=== PATIENT | female | born 1975 | race Caucasian/White ===

== ENCOUNTER 2016-07-23 20:36 | Inpatient (IN) | payer OTHER ==
[~2016-07-23] VITALS: Ht 162.6 cm; Wt 78.4 kg
[~2016-07-23 20:36] MED LIST: CEPH500T PO; HYDR50; IBUP800 PO; LEXA20TA OR; PREN0.01 PO; RANI150 PO
[2016-07-23 20:39] VITALS: BP 131/80; PULSE 72; RESP 16; TEMP 97.6; O2SAT 97
--- NOTE | 2016-07-23 21:17 | PD ---
HPI . Suicidal ideation Chief Complaint: Psychiatric Symptoms Time Seen by Provider: 20:57 Travel History International Travel<30 days: No Contact w/Intl Traveler<30days: No Traveled to known affect area: No History of Present Illness HPI Patient is brought us voluntarily by her with a chief complaint of suicidal ideation. She reports she onset of suicidal ideation about a week ago. She states that it is getting progressively worse. Today, she wrote letters to family members areas she has developed a plan in that she would take some pills, drinks some alcohol and then slash her wrist. She reports previous suicidal ideation with no real plan. She states that her current episode is much worse. She has a history of bipolar disorder. She reports she has been compliant with her medications. [facility] Past Medical History Bipolar Disorder: Yes (WITH RAPID CYCLING) Anxiety: Yes Depression: Yes Gestational Age in Weeks: 16 Migraines: Yes ?: Not LMP: 07/15/16 : 3 Para: 3 Tubal Ligation: Yes (2012) Past Surgical History Eye Surgery: Yes ( A CHILD) Social History Alcohol Use: Yes Tobacco Use: No Substance Use: Yes (MARIJUANA) Allergies-Medications (Allergen,Severity, Reaction): Coded Allergies: Shellfish (Verified Allergy, Severe, 07/23/16) Reported Meds & Prescriptions Reported Meds & Active Scripts Active Reported Latuda (Lurasidone) 80 Mg Tab 80 Mg PO DAILY Klonopin (Clonazepam) 0.5 Mg Tab 0.5 Mg PO BID Inderal LA 24 HR (Propranolol HCl) 60 Mg Cap 20 Mg PO DAILY Topamax (Topiramate) 25 Mg Tab 325 Mg PO BID Lamictal (Lamotrigine) 150 Mg Tab 150 Mg PO BID Effexor XR 24 HR (Venlafaxine HCl) 75 Mg Cap 75 Mg PO DAILY Review of Systems Except as stated in HPI: all other systems reviewed are Neg General / Constitutional: No: Fever, Chills Psychiatric: Positive: Depression, Suicidal Ideations, Mood Disorder Physical Exam Narrative GENERAL: Patient appears sad. Poor eye contact. Hair does not appear to have been washed recent past. SKIN: Warm and dry. HEAD: Atraumatic. Normocephalic. EYES: Pupils equal and round. ENT: No nasal bleeding or discharge. Mucous membranes pink and moist. NECK: Trachea midline. CARDIOVASCULAR: Regular rate and rhythm. RESPIRATORY: No accessory muscle use. MUSCULOSKELETAL: No obvious deformities. No edema. NEUROLOGICAL: Awake and alert. No obvious cranial nerve deficits. Motor grossly within normal limits. Normal speech. PSYCHIATRIC: Sad. Suicidal ideation. Hopeless. Data Data Last Documented VS Vital Signs Date Time Temp Pulse Resp B/P Pulse Ox O2 Delivery O2 Flow Rate FiO2 07/23/16 20:39 97.6 72 16 131/80 97 Room Air Orders Complete Blood Count With Diff (07/23/16 20:58) Comprehensive Metabolic Panel (07/23/16 20:58) Psych Screen (07/23/16 20:58) Drug Screen, Random Urine (07/23/16 20:58) Labs Laboratory Tests Test 07/23/16 21:20 White Blood Count 8.1 TH/MM3 Red Blood Count 4.55 MIL/MM3 Hemoglobin 13.6 GM/DL Hematocrit 40.8 % Mean Corpuscular Volume 89.6 FL Mean Corpuscular Hemoglobin 29.9 PG Mean Corpuscular Hemoglobin 33.4 % Concent Red Cell Distribution Width 13.5 % Platelet Count 290 TH/MM3 Mean Platelet Volume 10.0 FL Neutrophils (%) (Auto) 61.5 % Lymphocytes (%) (Auto) 29.6 % Monocytes (%) (Auto) 4.2 % Eosinophils (%) (Auto) 3.8 % Basophils (%) (Auto) 0.9 % Neutrophils # (Auto) 5.0 TH/MM3 Lymphocytes # (Auto) 2.4 TH/MM3 Monocytes # (Auto) 0.3 TH/MM3 Eosinophils # (Auto) 0.3 TH/MM3 Basophils # (Auto) 0.1 TH/MM3 CBC Comment DIFF FINAL Differential Comment Sodium Level 138 MEQ/L Potassium Level 3.4 MEQ/L Chloride Level 106 MEQ/L Carbon Dioxide Level 23.7 MEQ/L Anion Gap 8 MEQ/L Blood Urea Nitrogen 6 MG/DL Creatinine 1.13 MG/DL Estimat Glomerular Filtration 54 ML/MIN Rate Random Glucose 82 MG/DL Calcium Level 8.8 MG/DL Total Bilirubin 0.3 MG/DL Aspartate Amino Transf 10 U/L (AST/SGOT) Alanine Aminotransferase 16 U/L (ALT/SGPT) Alkaline Phosphatase 76 U/L Total Protein 7.2 GM/DL Albumin 3.7 GM/DL Urine Opiates Screen NEG Urine Barbiturates Screen NEG Urine Amphetamines Screen NEG Urine Benzodiazepines Screen NEG Urine Cocaine Screen NEG Urine Cannabinoids Screen POS MDM Medical Decision Making Medical Screen Exam Complete: Yes Emergency Medical Condition: Yes Differential Diagnosis Differential diagnosis includes but is not limited to depression with suicidal gesture, suicide attempt, suicidal ideation, attention seeking behavior. Narrative Course Patient brought in by her for suicidal ideation. She presented voluntarily. I will take out a Gil Act. CBC & BMP Diagram 07/23/16 21:20 Tox screen is positive for marijuana. Diagnosis Primary Impression: Suicidal ideation Condition: Stable Yvonne Lima MD Jul 23, 2016 21:17
[2016-07-23] MEDS ORDERED: VENL75XR PO (21:26)
[2016-07-23] MEDS ORDERED: LURA80 PO (21:26)
[2016-07-23] MEDS ORDERED: PROP60 PO (21:26)
[2016-07-23] MEDS ORDERED: TOPA25TA8 PO (21:26)
[2016-07-23] MEDS ORDERED: LAMO150 PO (21:26)
[2016-07-23] MEDS ORDERED: CLON.5 PO (21:26)
[2016-07-23 21:33] LABS: BASOPHIL # 0.1 TH/MM3 (0-0.2); BASOPHIL % 0.9 % (0.0-2.0); EOSINOPHIL # 0.3 TH/MM3 (0-0.4); EOSINOPHIL % 3.8 % (0.0-4.0); HEMATOCRIT 40.8 % (35.0-46.0); HEMO FLAGS DIFF FINAL; LYMPH % 29.6 % (9.0-44.0); LYMPHOCYTE # 2.4 TH/MM3 (1.0-4.8); MEAN CELL VOLUME 89.6 FL (80.0-100.0); MEAN CORPUSCULAR HEMOGLOBIN 29.9 PG (27.0-34.0); MEAN CORPUSCULAR HGB CONC 33.4 % (32.0-36.0); MONO % 4.2 % (0.0-8.0); NEUT % 61.5 % (16.0-70.0); PLATELET COUNT 290 TH/MM3 (150-450); RED BLOOD COUNT 4.55 MIL/MM3 (4.00-5.30); RED CELL DISTRIBUTION WIDTH 13.5 % (11.6-17.2); WHITE BLOOD COUNT 8.1 TH/MM3 (4.0-11.0)
[2016-07-23 21:44] LABS: AMPHETAMINE, URINE NEG (NEG); BARBITURATES, URINE NEG (NEG); COCAINE, URINE NEG (NEG)
[2016-07-23 22:01] LABS: ANION GAP 8 MEQ/L (5-15); AST (GOT) 10 U/L (15-37); BICARBONATE 23.7 MEQ/L (21.0-32.0); BLOOD UREA NITROGEN 6 MG/DL (7-18); CHLORIDE 106 MEQ/L (98-107); GLOMERULAR FILTRATION RATE 54 ML/MIN (>89); POTASSIUM 3.4 MEQ/L (3.5-5.1); SODIUM (NA) 138 MEQ/L (136-145)
[2016-07-23 22:03] LABS: ALKALINE PHOSPHATASE 76 U/L (45-117); ALT (GPT) 16 U/L (10-53); TOTAL BILIRUBIN ADULT 0.3 MG/DL (0.2-1.0)
[2016-07-23 23:38] VITALS: BP 114/58; PULSE 69; RESP 20; O2SAT 99
[2016-07-24] MEDS ORDERED: ALUMINUM/MAGNESIUM/SIMETH 30 ML CUP PO PRN (00:45)
[2016-07-24] MEDS ORDERED: MAGNESIUM HYDROXIDE SUSP 30 ML CUP PO PRN (00:45)
[2016-07-24] MEDS ORDERED: ACETAMINOPHEN 325 MG TAB PO PRN (00:45)
[2016-07-24 01:13] VITALS: BP 121/73; PULSE 73; RESP 19; TEMP 98.7; O2SAT 99
[2016-07-24] MEDS: VENLAFAXINE HCL XR 75 MG CAP PO SCH (08:16)
[2016-07-24] MEDS: LURASIDONE 80 MG TAB PO SCH (08:16)
[2016-07-24] MEDS: lamoTRIgine 100 MG TAB PO SCH ×2 (08:17→21:24)
[2016-07-24] MEDS: clonazePAM 0.5 MG TAB PO SCH ×2 (08:17→21:00)
[2016-07-24] MEDS: NICOTINE 21 MG/24 HR PATCH T-DERMAL SCH (08:18)
[2016-07-24] MEDS ORDERED: TOPIRAMATE 200 MG TAB PO SCH (09:00)
[2016-07-24] MEDS: PROPRANOLOL HCL 20 MG TAB PO SCH (09:00)
[2016-07-24] MEDS: TOPIRAMATE 25 MG TAB PO SCH ×2 (09:00→21:00)
[2016-07-24] MEDS ORDERED: TOPIRAMATE 100 MG TAB PO SCH (11:00)
[2016-07-24 15:35] VITALS: BP 126/78; PULSE 73; RESP 18; TEMP 96.9; O2SAT 95
--- NOTE | 2016-07-24 16:01 | HHI.HP ---
Provisional Diagnosis Admission Date Jul 24, 2016 at 00:32 [place] I. Major depressive disorder, recurrent, severe, without psychosis, history of bipolar 2 disorder, [place] II. Deferred [place] III. No medical problems [place] IV. Several family stressors [place] V. 35 Certification of Person's Competence To Provide Express and Informed Consent I have personally examined Marya Stafford , a person being served at [facility] on, Jul 24, 2016 15:46. Express and informed consent means consent voluntarily given in writing, by a competent person, after sufficient explanation and disclosure of the subject matter involved to enable the person to make a knowing and willful decision without any element of force, fraud, deceit, duress, or other form of constraint or coercion. This person is 18 years of age or older, is not now known to be incompetent to consent to treatment with a guardian advocate, and does not have a health care surrogate or proxy currently making medical treatment decisions. I have found this person to be one of the following: [] Competent to provide express and informed consent, as defined above, for voluntary admission to this facility and is competent to provide express and informed consent for treatment. He/she has the consistent capacity to make well reasoned, willful, and knowing decisions concerning his or her medical or mental health treatment. The person fully and consistently understands the purpose of the admission for examination/placement and is fully capable of personally exercising all rights assured [place] [] Incompetent to provide express and informed consent to voluntary admission, and this is incompetent to provide express and informed consent to treatment. The person must be transferred to involuntary status and a petition for a guardian advocate filed with the Circuit Court. [X] Refusing to provide express and informed consent to voluntary admission but is competent to provide express and informed consent for treatment. The person must be discharged or transferred to involuntary status. Form shall be completed within 24 hours of a person's arrival at the receiving facility and filed in the clinical record of each person: 1. Admitted on a voluntary basis 2. Permitted to provide express and informed consent to his/her own treatment 3. Allowed to transfer from involuntary to voluntary status 4. Prior to permitting a person to consent to his or her own treatment after having been previously found incompetent to consent to treatment. History of Present Illness Capacity: Has Capacity HPI The patient is a 40-year-old woman, domicile with her and 3 kids in [place], unemployed, with psychiatric history of depression, bipolar disorder 2, for previous psychiatric hospitalizations, last hospitalization was 3 years ago, outpatient psychiatric care with Dr. Garcia in [place], she is on Effexor 75 mg, not to the 80 mg, Lamictal 150 mg twice a day, clonazepam 0.5 mg twice a day, Topamax 25 mg twice a day, no previous suicidal attempts, no significant medical history, who was brought by her with a chief complaint of suicidal ideation. She reports she onset of suicidal ideation about a week ago. She states that it is getting progressively worse. Today, she wrote letters to family members areas she has developed a plan in that she would take some pills, drinks some alcohol and then slash her wrist. Patient stated that her life is a mess, she says that she cannot sit the future, she cannot see clear what she is going to do with her life. She says that her medications for depression are extremely expensive, she doesn't have a job, also her kids needs medication further medical illnesses, one of them has a heart condition another have ADHD and her insurance doesn't cover their medications. She has thought that it she kills herself at least her can use the money of her medications to bay the kids medication. Patient reports about 1 year of depressive symptoms, but at least 2 weeks of decreased energy, no appetite, weight loss, low self esteem, generalized pessimism, anhedonia, hopelessness, helplessness, worthlessness, and constant suicidal ideation without any specific plan. Patient also says that she has a chronic sense of emptiness inside her that has augmented in the last week and she cannot control. She denies homicidal ideation, she denies visual and auditory hallucinations. Patient is fully oriented 3, no attention deficit, no gross cognitive impairment observed. Patient reports the use of marijuana 2 or 3 times per week, denies the use of other illicit drugs and alcohol. Review of Systems Constitutional: DENIES: Diaphoretic episodes, Fatigue, Fever, Weight gain, Weight loss, Chills, Dizziness, Change in appetite, Night Sweats Endocrine: DENIES: Abnorml menstrual pattern, Heat/cold intolerance, Polydipsia , Polyuria, Polyphagia Eyes: DENIES: Blurred vision, Diplopia, Eye inflammation, Eye pain, Vision loss , Photosensitivity, Double Vision Ears, nose, mouth, throat: DENIES: Tinnitus, Hearing loss, Vertigo, Nasal discharge, Oral lesions, Throat pain, Hoarseness, Ear Pain, Running Nose, Epistaxis, Sinus Pain, Toothache, Odynophagia Cardiovascular: DENIES: Chest pain, Palpitations, Syncope, Dyspnea on Exertion , PND, Lower Extremity Edema, Orthopnea, Claudication Gastrointestinal: DENIES: Abdominal pain, Black stools, Bloody stools, Constipation, Diarrhea, Nausea, Vomiting, Difficulty Swallowing, Anorexia Musculoskeletal: DENIES: Joint pain, Muscle aches, Stiffness, Joint Swelling, Back pain, Neck pain Integumentary: DENIES: Abnormal pigmentation, Pruritus, Rash, Nail changes, Breast masses, Breast skin changes, Nipple discharge Immunologic/allergic: DENIES: Eczema, Urticaria Neurologic: DENIES: Abnormal gait, Headache, Localized weakness, Paresthesias, Seizures, Speech Problems, Tremor, Poor Balance Psychiatric: DENIES: Anxiety, Confusion, Mood changes, Depression, Hallucinations, Agitation, Suicidal Ideation, Homicidal Ideation, Delusions Past Psych History Violence risk - self (6 mos) Increased Substance Abuse History Drugs/Alcohol past 12 months Marijuana 2 or 3 times per week Past Family Social History Coded Allergies: Shellfish (Verified Allergy, Severe, 07/23/16) Codeine (Verified Adverse Reaction, Severe, Psychosis, 07/24/16) Reported Medications Lurasidone (Latuda)80 Mg Tab80 Mg PO DAILY #30 TAB Ref 0 07/23/16 Clonazepam (Klonopin)0.5 Mg Tab0.5 Mg PO BID #60 TAB Ref 0 07/23/16 Propranolol ER 24 HR (Inderal LA 24 HR)60 Mg Cap20 Mg PO DAILY #30 CAP Ref 0 07/23/16 Topiramate (Topamax)25 Mg [id number] Mg PO BID #60 TAB Ref 0 07/23/16 Lamotrigine (Lamictal)150 Mg [id number] Mg PO BID #60 TAB Ref 0 07/23/16 Venlafaxine ER 24 HR (Effexor XR 24 HR)75 Mg Cap75 Mg PO DAILY #30 CAP Ref 0 07/23/16 Current Medications Medications (Trade) Dose Ordered Sig/Marek Route Start Time Stop Time Status Last Admin (Tylenol) 650 mg Q4H PRN PO 07/24/16 00:45 (Milk Of Magnesia Liq) 30 ml DAILY PRN PO 07/24/16 00:45 (Mag-Al Plus Susp Liq) 30 ml Q6H PRN PO 07/24/16 00:45 (Habitrol 21 Mg Patch.24 Hr) 1 patch DAILY T-DERMAL 07/24/16 09:00 Miscellaneous Information 1 HS T-DERMAL 07/24/16 21:00 (Effexor Xr) 75 mg DAILY PO 07/24/16 09:00 07/24/16 08:16 (LaMICtal) 150 mg BID PO 07/24/16 09:00 07/24/16 08:17 (Topamax) 25 mg BID PO 07/24/16 09:00 07/24/16 09:00 (Inderal) 20 mg DAILY PO 07/24/16 09:00 07/24/16 09:00 (KlonoPIN) 0.5 mg BID PO 07/24/16 09:00 07/24/16 08:17 (Latuda) 80 mg DAILY PO 07/24/16 09:00 (Topamax) 300 mg BID PO 07/24/16 21:00 Family History She denies Social History Patient was born and raised in [place], she has been living in [place] with her , she has 3 kids, 14, 6, 6 years old, she is unemployed, her highest level of education is some college Physical Exam No withdrawal, no EPS, no tremors, no psychomotor retardation or agitation present Vital Signs Vital Signs Date Time Temp Pulse Resp B/P Pulse Ox O2 Delivery O2 Flow Rate FiO2 07/24/16 15:35 96.9 73 18 126/78 95 07/23/16 23:38 Room Air Lab Results Toxicology is positive for cannabis Mental Status Examination Appearance Overweight woman, [facility], age appearing, good hygiene, superficially cooperative, irritable, distant Speech: Unremarkable Orientation: x3 Memory: Unremarkable Thought Process: Logical Thought Content: Unremarkable Hallucination Type: None Suicidal Ideation: Yes Previous Suicide Attempts: No Homicidal Ideation: No Insight: Fair Judgment: Poor Affect: Irritable Mood: Sad Motor Activity: Normal gait Assessment & Plan Problem List: (1) Major depressive disorder, recurrent Assessment & Plan: The patient is a 40-year-old woman with psychiatric history of depression, bipolar disorder 2, for previous psychiatric hospitalizations, last hospitalization was 3 years ago, outpatient psychiatric care with Dr. Garcia in [place], she is on Effexor 75 mg, not to the 80 mg, Lamictal 150 mg twice a day, clonazepam 0.5 mg twice a day, Topamax 25 mg twice a day, no previous suicidal attempts, no significant medical history, who was brought by her with a chief complaint of suicidal ideation. On psychiatric evaluation patient reports about 1 year of depressive symptoms, but at least 2 weeks of decreased energy, no appetite, weight loss, low self esteem , generalized pessimism, anhedonia, hopelessness, helplessness, worthlessness, and constant suicidal ideation without any specific plan. Patient also says that she has a chronic sense of emptiness inside her that has augmented in the last week and she cannot control. At this moment patient represents an acute danger to herself and is psychiatric admission for stabilization and safety. Present symptomatology seems to be related with depression secondary to multiple family and social stressors, but a personality component needs to be closely monitored. Will restart outpatient psychotropics. pipe out worker intervention for psychosocial assessment, counseling, psychotherapy. Patient will participate in individual and group therapy. Collateral information is pending. Extensive support, motivation psychoeducation provided. Will consult psychiatry for second opinion. ICD Code: F33.9 Assessment & Plan Estimated LOS: Javed Monahan MD Jul 24, 2016 16:00
[2016-07-24] MEDS: REMOVE OLD NICOTINE PATCH T-DERMAL SCH (21:00)
[2016-07-24] MEDS: TOPIRAMATE 100 MG TAB PO SCH (21:00)
[2016-07-25 05:30] VITALS: BP 102/60; PULSE 90; RESP 18; TEMP 97; O2SAT 97
[2016-07-25 06:59] LABS: ANION GAP 6 MEQ/L (5-15); BICARBONATE 26.3 MEQ/L (21.0-32.0); BLOOD UREA NITROGEN 9 MG/DL (7-18); CHLORIDE 107 MEQ/L (98-107); GLOMERULAR FILTRATION RATE 55 ML/MIN (>89); HDL CHOLESTEROL 53.8 MG/DL (40.0-60.0); LDL CHOLESTEROL 169 MG/DL (0-99); POTASSIUM 3.6 MEQ/L (3.5-5.1); SODIUM (NA) 139 MEQ/L (136-145)
[2016-07-25] MEDS: clonazePAM 0.5 MG TAB PO SCH ×2 (08:41→21:10)
[2016-07-25] MEDS: LURASIDONE 80 MG TAB PO SCH (08:41)
[2016-07-25] MEDS: lamoTRIgine 100 MG TAB PO SCH ×2 (08:41→21:10)
[2016-07-25] MEDS: TOPIRAMATE 100 MG TAB PO SCH (08:41)
[2016-07-25] MEDS: TOPIRAMATE 25 MG TAB PO SCH ×2 (08:42→21:11)
[2016-07-25] MEDS: PROPRANOLOL HCL 20 MG TAB PO SCH ×2 (08:42→21:11)
[2016-07-25] MEDS: NICOTINE 21 MG/24 HR PATCH T-DERMAL SCH (08:43)
[2016-07-25] MEDS: VENLAFAXINE HCL XR 75 MG CAP PO SCH (08:43)
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
[2016-07-25 16:34] LABS: HEMOGLOBIN A1b 1.5 %; HEMOGLOBIN Ao 87.1 %; HEMOGLOBIN LA1C 1.6 %; HEMOGLOBIN P3 3.1 %
[2016-07-25 20:00] VITALS: BP 98/58; PULSE 66; RESP 17; O2SAT 96
[2016-07-25] MEDS: REMOVE OLD NICOTINE PATCH T-DERMAL SCH (21:00)
[2016-07-26 06:22] VITALS: BP 103/48; PULSE 64; RESP 18; TEMP 98; O2SAT 95
[2016-07-26] MEDS ORDERED: TOPIRAMATE 25 MG TAB PO SCH (09:00)
[2016-07-26] MEDS ORDERED: LURASIDONE 40 MG TAB PO SCH (09:00)
[2016-07-26] MEDS: NICOTINE 21 MG/24 HR PATCH T-DERMAL SCH (09:00)
[2016-07-26] MEDS: LURASIDONE 80 MG TAB PO SCH (09:05)
[2016-07-26] MEDS: PROPRANOLOL HCL 20 MG TAB PO SCH ×3 (09:07→21:24)
[2016-07-26] MEDS: clonazePAM 0.5 MG TAB PO SCH ×2 (09:07→21:23)
[2016-07-26] MEDS: VENLAFAXINE HCL XR 75 MG CAP PO SCH ×2 (09:07→21:23)
[2016-07-26] MEDS: lamoTRIgine 100 MG TAB PO SCH ×2 (09:08→21:23)
--- NOTE | 2016-07-26 10:33 | HHI.PYPN ---
Subjective Remarks Patient remains markedly depressed with suicidal ideation. She continues to feel overwhelmed by her responsibilities with her 3 children. She feels inadequate and states she is not working or being productive. This physician went over her medications and noted her Effexor dose is subtherapeutic for most people. Review of Systems ROS Limitations: Clinical Condition Objective Alert: Yes [place]: Person, Place, Date, Situation Mood: Depressed Affect: Restricted Memory Intact: Immediate, Recent, Remote Hallucinations: Other Delusions: No Delusion Type: Other Suicidal: Ideation Homicidal: Ideation Insight/Judgment Impaired Vitals/IOs Vital Signs Date Time Temp Pulse Resp B/P Pulse Ox O2 Delivery O2 Flow Rate FiO2 07/26/16 06:22 98.0 64 18 103/48 95 07/23/16 23:38 Room Air Assessment & Plan Problem List: (1) Severe depressed bipolar II disorder without psychotic features ICD Code: F31.81 (2) Use of cannabis ICD Code: F12.90 Assessment & Plan Estimated LOS: 4 days this physician increased the dose of Effexor from 75 mg to 150 mg per day. The dose of Latuda was dropped back to 80 mg per day. The dose of Topamax was dropped back to 50 mg per day. The Topamax medication may be discontinued over time as this physician does not find it helpful for the patient's medicines. Justification for Cont. Inpt. Suicidal and unable to care for herself. Request HC Surrog/Guard Advoc?: No Aurelio Garay MD Jul 26, 2016 10:33
[2016-07-26 19:00] VITALS: BP 89/58; PULSE 73; RESP 18; TEMP 97.6; O2SAT 95
[2016-07-26] MEDS: REMOVE OLD NICOTINE PATCH T-DERMAL SCH (21:00)
[2016-07-26] MEDS: TOPIRAMATE 25 MG TAB PO SCH (21:25)
[2016-07-27 06:34] VITALS: BP 118/53; PULSE 72; RESP 20; TEMP 98.5; O2SAT 96
[2016-07-27] MEDS: clonazePAM 0.5 MG TAB PO SCH ×2 (08:45→20:41)
[2016-07-27] MEDS: VENLAFAXINE HCL XR 75 MG CAP PO SCH ×2 (08:47→20:43)
[2016-07-27] MEDS: LURASIDONE 80 MG TAB PO SCH (08:49)
[2016-07-27] MEDS: NICOTINE 21 MG/24 HR PATCH T-DERMAL SCH (08:50)
[2016-07-27] MEDS: PROPRANOLOL HCL 20 MG TAB PO SCH ×2 (08:50→20:41)
[2016-07-27] MEDS: REMOVE OLD NICOTINE PATCH T-DERMAL SCH (08:50)
[2016-07-27] MEDS: lamoTRIgine 100 MG TAB PO SCH ×2 (08:52→20:43)
--- NOTE | 2016-07-27 09:45 | HHI.PYPN ---
Subjective Remarks Patient continues to complain of multiple symptoms of depression and has excuses for why she can't have the medications that she currently takes as she feels they will make her "hypomanic". She believes that the doctors do not recognize hypomania when they see it and therefore she is discharged when she should not be. She is concerned about her Effexor dose being raised to simply a therapeutic dose. She is also concerned about her Lamictal combined with the Effexor causing a hypomanic reaction. She states that her daughter is having a birthday today and she does not feel much of anything about it, which concerns her. Review of Systems ROS Limitations: Clinical Condition Objective Alert: Yes [place]: Person, Place, Date, Situation Mood: Depressed Affect: Restricted Memory Intact: Immediate, Recent, Remote Hallucinations: Other Delusions: No Delusion Type: Other Suicidal: Ideation Homicidal: Ideation Insight/Judgment Impaired Vitals/IOs Vital Signs Date Time Temp Pulse Resp B/P Pulse Ox O2 Delivery O2 Flow Rate FiO2 07/27/16 06:34 98.5 72 20 118/53 96 07/23/16 23:38 Room Air Assessment & Plan Problem List: (1) Adjustment disorder with mixed disturbance of emotions and conduct ICD Code: F43.25 (2) Use of cannabis ICD Code: F12.90 Assessment & Plan Estimated LOS: 3 days this physician feels the patient is invested in being bipolar when there is inadequate symptomatology present to demonstrate this diagnosis at the present time. For example, the patient continues to socialize throughout the day. She continues to take care of her hygiene, shower, dressing , etc. She continues to be interested and participate in all groups and activities. She repeatedly discusses how stressful her life is outside of the hospital and does so with energy. This physician feels that once she is on reasonable and stable doses of medication she should be followed as an outpatient. Justification for Cont. Inpt. Awaiting stabilization on medication changes. Request HC Surrog/Guard Advoc?: No Aurelio Garay MD Jul 27, 2016 09:45
[2016-07-27 17:58] VITALS: BP 111/53; PULSE 70; RESP 20; TEMP 97.8; O2SAT 96
[2016-07-27] MEDS: TOPIRAMATE 25 MG TAB PO SCH (20:42)
[2016-07-28 06:19] VITALS: BP 101/54; PULSE 67; RESP 17; TEMP 97.8; O2SAT 98
[2016-07-28] MEDS: PROPRANOLOL HCL 20 MG TAB PO SCH ×2 (09:00→21:00)
[2016-07-28] MEDS: NICOTINE 21 MG/24 HR PATCH T-DERMAL SCH (09:00)
[2016-07-28] MEDS: LURASIDONE 80 MG TAB PO SCH ×2 (09:00→18:00)
[2016-07-28] MEDS: clonazePAM 0.5 MG TAB PO SCH (09:22)
[2016-07-28] MEDS: VENLAFAXINE HCL XR 75 MG CAP PO SCH ×2 (09:23→21:39)
[2016-07-28] MEDS: lamoTRIgine 100 MG TAB PO SCH ×2 (09:23→21:40)
--- NOTE | 2016-07-28 15:30 | HHI.PYPN ---
Subjective Remarks Patient is complaining that the increased dose of Effexor is making her experience mixed symptoms of bipolar disorder. However the symptoms are reportedly on the inside and this physician cannot ascertain any symptoms of mixed bipolar disorder at this time. The patient is willing to continue with her dose of Effexor even though she complains of tremulousness which she reports is due to the Lamictal and problems with anxiety and insomnia. This physician is willing to increase the Klonopin to 1 mg every 12 hours. We will put back the Topamax and change the Latuda 2 PM. Review of Systems ROS Limitations: Clinical Condition Objective Alert: Yes [place]: Person, Place, Date, Situation Mood: Depressed Affect: Restricted Memory Intact: Immediate, Recent, Remote Hallucinations: Other Delusions: No Delusion Type: Other Suicidal: Ideation Homicidal: Ideation Insight/Judgment Impaired. Vitals/IOs Vital Signs Date Time Temp Pulse Resp B/P Pulse Ox O2 Delivery O2 Flow Rate FiO2 07/28/16 06:19 97.8 67 17 101/54 98 Assessment & Plan Problem List: (1) Adjustment disorder with mixed disturbance of emotions and conduct ICD Code: F43.25 (2) Use of cannabis ICD Code: F12.90 Assessment & Plan Estimated LOS: 3 days days medication changes in order to stabilize the patient 's mood and affect. Justification for Cont. Inpt. Need to change the timing and dosing of medications. Request HC Surrog/Guard Advoc?: No Aurelio Garay MD Jul 28, 2016 15:30
[2016-07-28] MEDS ORDERED: PILL SPLITTER OTHER PRN (15:45)
[2016-07-28] MEDS: LURASIDONE 40 MG TAB PO SCH (18:00)
[2016-07-28 18:11] VITALS: BP 122/54; PULSE 80; RESP 17; TEMP 98.2; O2SAT 97
[2016-07-28] MEDS: REMOVE OLD NICOTINE PATCH T-DERMAL SCH (21:00)
[2016-07-28] MEDS: TOPIRAMATE 25 MG TAB PO SCH (21:39)
[2016-07-28] MEDS: clonazePAM 1 MG TAB PO SCH (21:43)
[2016-07-29] MEDS ORDERED: TOPIRAMATE 25 MG TAB PO SCH (09:00)
[2016-07-29] MEDS: PROPRANOLOL HCL 20 MG TAB PO SCH (09:00)
[2016-07-29] MEDS: NICOTINE 21 MG/24 HR PATCH T-DERMAL SCH ×2 (09:00→09:30)
[2016-07-29] MEDS: clonazePAM 1 MG TAB PO SCH (09:29)
[2016-07-29] MEDS: lamoTRIgine 100 MG TAB PO SCH (09:30)
[2016-07-29] MEDS: VENLAFAXINE HCL XR 75 MG CAP PO SCH (09:30)
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
[2016-07-29] MEDS ORDERED: PROP20TA3 PO (15:36)
[2016-07-29] MEDS ORDERED: LURA40 PO (15:36)
[2016-07-29] MEDS ORDERED: LAMO100 PO (15:36)
[2016-07-29] MEDS ORDERED: LURA80 PO (15:36)
[2016-07-29] MEDS ORDERED: CLON1 PO (15:36)
[2016-07-29] MEDS ORDERED: TOPA25TA8 PO ×2 (15:36)
[2016-07-29] MEDS ORDERED: VENL75XR PO (15:36)
[2016-07-29] MEDS: LURASIDONE 80 MG TAB PO SCH (16:49)
[2016-07-29] MEDS: LURASIDONE 40 MG TAB PO SCH (16:49)
== END 2016-07-29 17:40 | disposition home or self-care (01) | DRG 882 ==
LOC: NEPC 20:36 → NEDA 07-24 00:32 → H270 07-24 01:07 → H260 07-25 09:11
PROVIDERS: ADMIT Psychiatry & Neurology Psychiatry; ATTEND Psychiatry & Neurology Psychiatry
DX: F43.25 Adjustment disorder with mixed disturbance of emotions and conduct (principal); E66.3 Overweight; F12.90 Cannabis use, unspecified, uncomplicated; Z81.8 Family history of other mental and behavioral disorders; G43.909 Migraine, unspecified, not intractable, without status migrainosus; Z68.29 Body mass index [BMI] 29.0-29.9, adult
CPT/HCPCS: 80048; 80053; 80061; 80307; 83036; 84703; 85025; 99285